=== PATIENT | female | born 1945 | race Caucasian/White ===

== ENCOUNTER 2022-09-02 02:07 | Day surgery (SDC) | payer MEDICARE, SELFPAY ==
[2022-08-26 09:01] VITALS: BMI 29.0
[2022-09-02 07:39] VITALS: BP 140/69; PULSE 85; RESP 16; TEMP 36.7; O2SAT 100; BMI 28.9
[2022-09-02] MEDS: LACTATED RINGERS 1,000 ML 150 ML IV CONT (07:46)
--- NOTE | 2022-09-02 08:10 | WPDANESEPPF ---
Anes - Initial Pre Proc Eval Procedure: Operation Date: 09/02/22 08:30 Proposed Procedures p Colonoscopy - Lopez Worthy MD Date/Time: 09/02/22 08:10 Surgeon: Lopez Worthy MD Pre Op Diagnosis: positive cologuard Patient Data Age: 76 Gender: F Height: 1.57 m Weight: 71.7 kg Last Vital Signs Temp 36.7 C 09/02/22 07:39 Pulse 85 09/02/22 07:39 Resp 16 09/02/22 07:39 BP 140/69 09/02/22 07:39 Pulse Ox 100 09/02/22 07:39 O2 Del Method Room Air 09/02/22 07:39 Allergies Allergy/AdvReac Type Severity Reaction Status Date / Time No Known Allergies Allergy Unknown Verified 09/02/22 07:38 Home Medications Medication Instructions Recorded Confirmed Type Calcium 500 + D (D3) 500 mg PO DAILY 08/26/22 08/26/22 History chromium picolinate-vitamin D3 1,000 units PO DAILY 08/26/22 08/26/22 History rosuvastatin 5 mg tablet 5 mg PO DAILY 08/26/22 08/26/22 History Patient hx anesthesia problems: none Family hx anesthesia problems: none Results Review: All pre-operative results and documents have been reviewed as part of the pre-operative evaluation. [facility] Past Medical History Medical History (Updated 09/02/22 @ 08:11 by Braxton Moy MD) Family history of colon cancer Hyperlipidemia Surgical History Surgical History (Updated 09/02/22 @ 08:11 by Braxton Moy MD) H/O colonoscopy Social History Social History Smoking status: Never smoker Alcohol intake: never Substance use: never Substance use type: does not use Living arrangements: alone Spiritual care concerns: No Anes - Eval Final PreProcedure Day of Procedure 09/02/22 08:10 Patient weight: overweight Heart: regular rate and rhythm Lungs: clear to auscultation Airway: Mallampati scale class II Last oral intake: >/= 8 hours ASA classification: II Emergent: no Anesthetic plan: proceed Anesthesia type and monitoring: general GIVS and standard monitoring Results Review: All pre-operative results and documents have been reviewed as part of the pre-operative evaluation. Informed Consent: The patient's anesthetic plan and its attendant risks and benefits were discussed with the patient/family/POA. Questions were solicited and answers provided to the satisfaction of the patient/family/POA.
--- NOTE | 2022-09-02 08:16 | P.HP_ITS ---
History of Present Illness History of Present Illness Consent: Risks, benefits, and alternatives have been discussed and questions answered. Patient agrees to proceed with procedure. Chief complaint: positive cologuard Narrative: Angy Menendez is a 76 year old female Presents for screening colonoscopy. Patient recently had positive Cologuard test. Patient does have a family history that her father had colon cancer. A brother had colon polyps. Patient had a previous colonoscopy in 2016 that was unremarkable. Patient presents today for neoplasia screening colonoscopy. She reports that her current weight appetite and bowel movements are normal. She denies any bleeding. She has no abdominal pain. Review of Systems Review of Systems: Review of systems noncontributory. [facility] Past Medical History Medical History (Updated 09/02/22 @ 08:18 by Lopez Worthy MD) Family history of colon cancer Hyperlipidemia Surgical History Surgical History (Updated 09/02/22 @ 08:11 by Braxton Moy MD) H/O colonoscopy Social History Social History Smoking status: Never smoker Alcohol intake: never Substance use: never Substance use type: does not use Living arrangements: alone Spiritual care concerns: No Meds Home Medications and Allergies Home Medications Medication Instructions Recorded Confirmed Type Calcium 500 + D (D3) 500 mg PO DAILY 08/26/22 08/26/22 History chromium picolinate-vitamin D3 1,000 units PO DAILY 08/26/22 08/26/22 History rosuvastatin 5 mg tablet 5 mg PO DAILY 08/26/22 08/26/22 History Allergies Allergy/AdvReac Type Severity Reaction Status Date / Time No Known Allergies Allergy Unknown Verified 09/02/22 07:38 Vital Signs Vital Signs - 24 hr 09/02/22 07:39 Temperature 98.1 F Pulse Rate 85 Respiratory Rate 16 Blood Pressure 140/69 Pulse Oximetry 100 Oxygen Delivery Room Air Exam Narrative: Physical exam reveals patient to be alert. Vital signs stable. HEENT exam is unremarkable. Patient is anicteric. Lungs are clear to ausculta tion and percussion. Heart is without murmur or extra sounds. Abdomen bowel sounds are present soft nontender with no organomegaly. Digital external rectal exam is normal. Assessment and Plan Assessment and plan (1) Positive colorectal cancer screening using Cologuard test: Code(s): R19.5 - Other fecal abnormalities Status: Acute Assessment and Plan: Patient had a positive screening Cologuard test. For this reason colonoscopy requested will be performed. (2) Family history of colon cancer in father: Code(s): Z80.0 - Family history of malignant neoplasm of digestive organs Status: Acute Assessment and Plan: Patient's father had colon cancer, patient's brother had colon polyps. Plan for surveillance colonoscopy to evaluate.
[2022-09-02 08:45] VITALS: BP 113/64; PULSE 73; RESP 27; O2SAT 96
[2022-09-02 08:55] VITALS: BP 122/75; PULSE 74; RESP 21; O2SAT 98
[2022-09-02 09:05] VITALS: BP 138/83; PULSE 66; RESP 18; O2SAT 99
== END 2022-09-02 09:12 | disposition home or self-care (01) ==
PROVIDERS: PCP Family Medicine; Visit Provider Internal Medicine Gastroenterology
PROC: 0DJD8ZZ Inspection of Lower Intestinal Tract, Via Natural or Artificial Opening Endoscopic (ICD-10-PCS; CPT 45378; principal; 2022-09-02 08:30)
DX: R19.5 Other fecal abnormalities (principal); K64.8 Other hemorrhoids; Z80.0 Family history of malignant neoplasm of digestive organs; E78.5 Hyperlipidemia, unspecified
CPT/HCPCS: 45378; J2704; J7120